=== PATIENT | male | born 2000 | race Caucasian/White ===

== ENCOUNTER 2025-04-21 10:54 | Emergency (ER) | payer OTHER ==
[~2025-04-21] VITALS: Ht 177.8 cm; Wt 78.8 kg
[2025-04-21] MEDS ORDERED: LITHATE5 MG PO (13:38)
[2025-04-21] MEDS ORDERED: SODIUM CHLORIDE 0.9% 500 ML IV ONE (14:00)
[2025-04-21 14:54] LABS: BASOPHILS 0.3 % (0.2-1.2); EOSINOPHILS 0.1 % (0.8-7.0); LYMPHOCYTES 6.9 % (21.8-53.1); MCH 29.5 PG (25.7-32.2); MCHC 34.0 g/dL (32.3-36.5); MCV 86.8 fL (79.0-92.2); MONOCYTES 11.2 % (5.3-12.2); NEUTROPHILS 80.7 % (34.0-67.9); RBC 5.08 M/uL (4.63-6.08)
[2025-04-21 15:20] LABS: ALT (SGPT) 23.0 U/L (14-59); AST (SGOT) 14.0 U/L (15-37); GLOMERULAR FILTRATION RATE,EST 129.0 mL/min (>60); PROTEIN, TOTAL 7.7 g/dL (6.4-8.2); UREA NITROGEN 9.0 mg/dL (7-18)
[2025-04-21 16:27] LABS: CORONAVIRUS COVID-19 AG NEGATIVE (NEGATIVE)
[2025-04-21 17:26] LABS: BLOOD/HGB, URINE NEGATIVE (Negative); KETONE, URINE >=80 (Negative); LEUK ESTERASE, URINE NEGATIVE (negative); NITRITE, URINE NEGATIVE (negative)
[2025-04-21 18:11] LABS: BACTERIA, URINE RARE /hpf (negative); CASTS, URINE NONE SEEN \\lpf; CRYSTALS, URINE NONE SEEN (0-1+); EPITHELIAL CELLS, URINE TRANSITIONAL 1+ /lpf (0-1+)
[2025-04-21 18:12] LABS: REFLEX CULTURE, URINE No (No)
[2025-04-21 18:57] VITALS: BP 125/92
[2025-04-21] MEDS ORDERED: ACETAMINOPHEN 500 MG TAB PO ONE (19:00)
== END 2025-04-21 19:04 | disposition home or self-care (01) ==
LOC: ED 10:54
PROVIDERS: Emergency Medicine
DX: B34.9 Viral infection, unspecified (principal); Z79.899 Other long term (current) drug therapy
CPT/HCPCS: 36415; 80053; 80178; 81001; 83735; 85025; 96374; 99284-25; A9270; J2405; J7040

== ENCOUNTER 2025-05-02 23:57 | Emergency (ER) | payer OTHER ==
[~2025-05-02] VITALS: Ht 177.8 cm; Wt 79.0 kg
[~2025-05-02 23:57] MED LIST: LITHATE5 MG PO
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
[2025-05-03] MEDS ORDERED: LITHIUM CARBON300 MG PO (00:09)
[2025-05-03] MEDS ORDERED: QUETIAPINE FUM100 MG PO (00:09)
[2025-05-03 00:26] LABS: BASOPHILS 0.5 % (0.2-1.2); EOSINOPHILS 0.5 % (0.8-7.0); LYMPHOCYTES 17.3 % (21.8-53.1); MCH 30.2 PG (25.7-32.2); MCHC 33.8 g/dL (32.3-36.5); MCV 89.4 fL (79.0-92.2); MONOCYTES 6.3 % (5.3-12.2); NEUTROPHILS 74.4 % (34.0-67.9); RBC 4.63 M/uL (4.63-6.08)
[2025-05-03 00:52] LABS: ALT (SGPT) 46 U/L (14-59); AST (SGOT) 21 U/L (15-37); GLOMERULAR FILTRATION RATE,EST 89 mL/min (>60); PROTEIN, TOTAL 7.9 g/dL (6.4-8.2); TSH, 3RD GENERATION 1.888 uIU/mL (0.358-3.740); UREA NITROGEN 10 mg/dL (7-18)
[2025-05-03 01:36] LABS: BLOOD/HGB, URINE NEGATIVE (Negative); KETONE, URINE NEGATIVE (Negative); LEUK ESTERASE, URINE NEGATIVE (negative); NITRITE, URINE NEGATIVE (negative)
[2025-05-03 01:50] LABS: AMPHETAMINES, URINE POSITIVE (NEGATIVE); BARBITURATES, URINE NEGATIVE (NEGATIVE); BENZODIAZEPINE, URINE NEGATIVE (NEGATIVE); CANNABINOID, URINE POSITIVE (NEGATIVE); COCAINE, URINE NEGATIVE (NEGATIVE); ECSTASY, URINE NEGATIVE (NEGATIVE); FENTANYL, URINE POSITIVE (NEGATIVE); METHADONE, URINE NEGATIVE (NEGATIVE); OPIATES, URINE NEGATIVE (NEGATIVE); OXYCODONE, URINE NEGATIVE (NEGATIVE); PHENCYCLIDINE, URINE NEGATIVE (NEGATIVE)
[2025-05-03] MEDS ORDERED: ONDANSETRON 4 MG TAB ODT SL ONE (05:15)
[2025-05-03] MEDS ORDERED: QUETIAPINE FUMARATE 100 MG TAB PO ONE (05:15)
[2025-05-03] MEDS ORDERED: LITHIUM CARBONATE 300 MG TABCR PO SCH ×2 (09:00→11:00)
--- NOTE | 2025-05-03 15:05 | EKG ---
[facility] [address] [facility] [place] [address] Signed Sinus tachycardia with short [place] Otherwise normal ECG No previous ECGs available Confirmed by Scarlett Haro MD () on 05/03/2025 3:05:06 PM Electronically Signed By: SCARLETT HARO MD 05/03/25 1505 PATIENT NAME: DAYANNA CONROY CONSTANCE Electrocardiogram DATE OF : 00 PHYSICIAN: SCARLETT HARO MD REPORT #: [id number] REPORT IS CONFIDENTIAL AND NOT TO BE RELEASED WITHOUT AUTHORIZATION
[2025-05-03 18:13] VITALS: BP 95/55
[2025-05-03] MEDS ORDERED: QUETIAPINE FUMARATE 100 MG TAB PO SCH (21:00)
== END 2025-05-03 17:57 | disposition home or self-care (01) ==
LOC: ED 23:57
PROVIDERS: Internal Medicine
DX: T40.411A Poisoning by fentanyl or fentanyl analogs, accidental (unintentional), initial encounter (principal); R00.0 Tachycardia, unspecified; F31.9 Bipolar disorder, unspecified; Z79.899 Other long term (current) drug therapy
CPT/HCPCS: 36415; 80053; 80178; 80307; 81003; 84443; 85025; 93005; 93010; 99284; A9270; G0480

== ENCOUNTER 2025-05-11 22:03 | Emergency (ER) | payer OTHER ==
[~2025-05-11] VITALS: Ht 177.8 cm; Wt 84.0 kg
[~2025-05-11 22:03] MED LIST changes: +LITHIUM CARBON300 MG PO; +QUETIAPINE FUM100 MG PO
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
[2025-05-11] MEDS ORDERED: KETOROLAC TROMETHAMINE 60 MG/2 ML VIAL IM ONE (22:30)
[2025-05-11] MEDS ORDERED: HYDROCODONE/ACETA 5/325 TAB PO ONE (22:30)
[2025-05-11] MEDS ORDERED: LITHIUM CARBON600 MG PO (22:40)
[2025-05-11] MEDS ORDERED: CELEBREX200 MG PO (23:31)
[2025-05-11] MEDS ORDERED: CYCLOBENZAPRINE10 MG PO (23:31)
[2025-05-11] MEDS ORDERED: CYCLOBENZAPRINE HCL 10 MG HOME.PACK PO ONE (23:45)
[2025-05-11 23:52] VITALS: BP 140/81
== END 2025-05-11 23:52 | disposition home or self-care (01) ==
LOC: ED 22:03
PROVIDERS: Family Medicine
DX: S42.001A Fracture of unspecified part of right clavicle, initial encounter for closed fracture (principal); S43.101A Unspecified dislocation of right acromioclavicular joint, initial encounter; Z79.899 Other long term (current) drug therapy; V19.9XXA Pedal cyclist (driver) (passenger) injured in unspecified traffic accident, initial encounter
CPT/HCPCS: 36415; 71045; 73000; 80178; 96372; 99284; J1885

== ENCOUNTER 2025-05-28 11:35 | Day surgery (SDC) | payer OTHER ==
[~2025-05-28] VITALS: Ht 177.8 cm; Wt 82.0 kg
[~2025-05-28 11:35] MED LIST changes: +CEFAZOLIN SODIUM 2 GM in SODIUM CHLORIDE 0.9% 100 ML IV SCH; +CELEBREX200 MG PO; +CYCLOBENZAPRINE10 MG PO; +IBLOOD GLUCOSE TEST STRIP 1 EA TEST VI PRN; +LACTATED RINGER'S 1,000 ML IV SCH; +LIDOCAINE HCL 1% 5 ML SDV INJ ONE; +LITHIUM CARBON600 MG PO; +TRANEXAMIC ACID IN NACL,ISO-OS 1,000 MG/100 ML PIGGYBACK IV SCH; +TRANEXAMIC ACID IN NACL,ISO-OS 100 ML IV ONE
[2025-05-28 12:06] VITALS: BP 139/82
[2025-05-28] MEDS ORDERED: MIDAZOLAM HCL 2 MG/2 ML VIAL ONE (13:06)
[2025-05-28] MEDS ORDERED: Ropivacaine HCl 0.5% 30 ML VIAL ONE (13:06)
[2025-05-28] MEDS ORDERED: fentaNYL citrate 100 MCG/2 ML VIAL ONE (13:06)
[2025-05-28] MEDS ORDERED: SODIUM CHLORIDE 0.9% 20 ML IV ONE (13:07)
[2025-05-28] MEDS ORDERED: DEXAMETHASONE SOD PHOS 10 MG/ML VIAL ONE (13:08)
[2025-05-28] MEDS ORDERED: LIDOCAINE HCL 2% 5 ML SDV ONE ×2 (13:11→13:21)
[2025-05-28] MEDS ORDERED: TRAMADOL HCL 50 MG TAB PO PRN (13:15)
[2025-05-28] MEDS ORDERED: HYDROCODONE/ACETA 7.5/325 TAB PO PRN (13:15)
[2025-05-28] MEDS ORDERED: ROCURONIUM BROMIDE 50 MG/5 ML SYR ONE ×3 (13:21→15:04)
[2025-05-28] MEDS ORDERED: DEXAMETHASONE SOD PHOS 4 MG/ML VIAL ONE (13:31)
[2025-05-28] MEDS ORDERED: SUGAMMADEX SODIUM 200 MG/2 ML ML ONE (14:01)
[2025-05-28] MEDS ORDERED: TRANEXAMIC ACID 1,000 MG/10 ML AMP ONE (14:02)
[2025-05-28] MEDS ORDERED: ACETAMINOPHEN 1,000 MG/100 ML VIAL ONE (14:02)
[2025-05-28] MEDS ORDERED: KETOROLAC TROMETHAMINE 30 MG/ML VIAL ONE (14:08)
[2025-05-28] MEDS ORDERED: BUPIVACAINE HCL 0.25% 50 ML MDV ONE (14:11)
[2025-05-28] MEDS ORDERED: HYDROmorphone HCL 1 MG/ML SYR IV PRN (14:15)
[2025-05-28] MEDS ORDERED: IBLOOD GLUCOSE TEST STRIP 1 EA TEST VI PRN (14:15)
[2025-05-28] MEDS ORDERED: fentaNYL citrate 50 MCG/ML SDV IV PRN (14:15)
[2025-05-28] MEDS ORDERED: NALOXONE HCL 0.4 MG SYR IV PRN (14:15)
[2025-05-28] MEDS ORDERED: DICLOFENAC SODI75 MG PO (15:07)
[2025-05-28] MEDS ORDERED: TRAMADOL HCL50 MG PO (15:08)
--- NOTE | 2025-05-28 15:16 | NUR ---
05/28/25 1516 Aleisha Buckley 1508: PT ARRIVES TO PACU NON AROUSAL/NON REACTIVE. REPORT RECEIVED FROM CYCLE CONSULTANT AND UNIVERSITY INTERN. ORAL AIRWAY IN PLACE.
[2025-05-28] MEDS ORDERED: TRANEXAMIC ACID IN NACL,ISO-OS 200 ML IV ONE (15:22)
[2025-05-28] MEDS ORDERED: TRANEXAMIC ACID IN NACL,ISO-OS 1,000 MG/100 ML PIGGYBACK IV SCH (15:30)
[2025-05-28 16:16] VITALS: BP 139/86
--- NOTE | 2025-05-28 16:20 | NUR ---
6550 PT ARRIVED TO DAY SURGERY FROM PACU VIA CLAUDIAR. REPORT TAKEN FROM KIM Carlisle RN. VITALS TAKEN. IV ASSESSED. PT RESPONSIVE TO VERBAL STIMULI. PT ABLE TO TOLERATE PO WATER. PUDDING AT BEDISDE. PT MOM IN ROOM. BED IS LOW AND LOCKED AND CALL LIGHT WITHIN REACH. NO PAIN OR NAUSEA AT THIS TIME.
[2025-05-28] MEDS ORDERED: SEVOFLURANE 250 ML BTL INH ONE (16:32)
[2025-05-28 17:24] VITALS: BP 102/58
--- NOTE | 2025-05-28 18:12 | NUR ---
1730 PT ABLE TO AMBULATE TO BATHROOM AND VOID 600 MLS OF CLEAR YELLOW URINE. PT ABLE TO AMBULATE BACK TO ROOM WITHOUT ASSISTANCE. PT SURGICAL ARM IN SLING. 1745 DISCHARGE INFORMATION GONE OVER WITH PT AND MOM. PT HAS POLAR ICE CRYO CUFF. PT AND MOM HAVE NO QUESTIONS AT THIS TIME. PT DRESSED WITH ASSISTANCE. PT HAS SLING IN PLACE. 1755 PT DISCHARGED FROM DAY SURGERY VIA WHEELCHAIR TO THE FRONT OF THE HOSPITAL TO PT'S MOM'S CAR. PT HAS DISCHARGE PAPERWORK IN HAND.
[2025-05-28] MEDS ORDERED: DICLOFENAC SOD 75 MG TABEC PO SCH (21:00)
--- NOTE | 2025-05-29 07:02 | OR ---
[facility] [address] [place], [place] [address] Signed DATE OF OPERATION: 05/28/2025 SURGEON: Aldo Bee MD PREOPERATIVE DIAGNOSIS: Displaced comminuted right clavicle fracture. POSTOPERATIVE DIAGNOSIS: Displaced comminuted right clavicle fracture. PROCEDURE PERFORMED: Open reduction and internal fixation of right clavicle shaft. RELIEF DRILLER: None. ANESTHESIA: General. BLOOD LOSS: 150 mL. IMPLANTS: Antelmo eight hole clavicle plate with nine screws. BRIEF HISTORY: Dayanna is a 25-year-old gentleman, who fractured his clavicle in a comminuted displaced manner. Risks and benefits of operative treatment were discussed with him and he elected to proceed. DESCRIPTION OF PROCEDURE: Once consent was obtained, he was taken to the operating room. After adequate anesthesia, he was placed on the OR table in a beach chair position. All downside pressure points were well padded. The shoulder was prepped and draped in a standard sterile fashion. The clavicle was approached through a superior incision, carried through the skin and subcutaneous tissue. The fracture was readily identified, but had consolidated some. With some difficulty, the five separate pieces of the clavicle were dissected free from each other and the two main bodies of the clavicle were reduced. We were unable to really hold them in position, so the plate was placed on the superior aspect of the clavicle and screwed each end. This was checked using image intensifier Electronically Signed By: ALDO BEE MD 05/29/25 0702 PATIENT NAME: DAYANNA CONROY OPERATIVE REPORT DATE OF : 00 REPORT #: [id number] PHYSICIAN: ALDO BEE MD PCP: NO PRIMARY CARE PHYSICIAN REPORT IS CONFIDENTIAL AND NOT TO BE RELEASED WITHOUT AUTHORIZATION [address], [place] [address] Signed and found to be good. The remaining screw holes were drilled and appropriate length screws were placed. The butterfly fragment posteriorly and butterfly fragment anteriorly were then reduced and held with a clamp. The drill was then passed through all of these and a 30 mm 2.7 screw was passed from anterior to posterior, securing these to the main body of the clavicle. Final radiograph showed good reduction and screw lengths. The wound was copiously irrigated with normal saline. The periosteum for the deltoid and trapezius was then repaired back over the clavicle using 0 Monocryl, subcutaneous tissue with 0 Monocryl and the skin with 3-0 Stratafix. Wound was sealed with LiquiBand and Steri-Strips and dressed with an Acticoat-7 dressing. He tolerated the procedure well. All sponge, needle, and instrument counts were correct. Aldo Bee MD BA/CHEYENNE /[id number] Copies: ~ Electronically Signed By: ALDO BEE MD 05/29/25 0702 PATIENT NAME: DAYANNA CONROY OPERATIVE REPORT DATE OF : 00 REPORT #: [id number] PHYSICIAN: ALDO BEE MD PCP: NO PRIMARY CARE PHYSICIAN REPORT IS CONFIDENTIAL AND NOT TO BE RELEASED WITHOUT AUTHORIZATION
--- NOTE | 2025-05-29 22:26 | EKG ---
[facility] [address] [facility] [place] [address] Signed Normal sinus rhythm with sinus arrhythmia Normal ECG When compared with ECG of 03-MAY-2025 00:12, Vent. rate has decreased BY 72 BPM T wave inversion no longer evident in Inferior leads Confirmed by Scarlett Haro MD () on 05/29/2025 10:26:04 PM Electronically Signed By: SCARLETT HARO MD 05/29/25 2226 PATIENT NAME: DAYANNA CONROY CONSTANCE Electrocardiogram DATE OF : 00 PHYSICIAN: SCARLETT HARO MD REPORT #: [id number] REPORT IS CONFIDENTIAL AND NOT TO BE RELEASED WITHOUT AUTHORIZATION
== END 2025-05-28 17:55 | disposition home or self-care (01) ==
LOC: DS 11:35
PROVIDERS: ATTEND Specialist
PROC: 3E0T3BZ Introduction of Anesthetic Agent into Peripheral Nerves and Plexi, Percutaneous Approach (ICD-10-PCS; 2025-05-28)
PROC: 0PS904Z Reposition Right Clavicle with Internal Fixation Device, Open Approach (ICD-10-PCS; principal; 2025-05-28 13:45)
DX: S42.021A Displaced fracture of shaft of right clavicle, initial encounter for closed fracture (principal); X58.XXXA Exposure to other specified factors, initial encounter
CPT/HCPCS: 00450; 64415; 73000; 93005; 93010; C1713; J0131; J1100; J1171; J1885; J2003; J2250; J2405; J2704; J2795; J3010; J3490; J7121